=== PATIENT | female | born 1960 | race Caucasian/White ===

== ENCOUNTER 2019-11-06 05:44 | Observation (INO) | payer OTHER ==
[2019-10-29 16:22] LABS: BASOPHILS # (AUTO) 0.1 X10'3 (0-0.2); BASOPHILS % (AUTO) 0.8 % (0-1); EOSINOPHILS # (AUTO) 0.1 X10'3 (0-0.9); EOSINOPHILS % (AUTO) 1.1 % (0-6); LYMPHOCYTES # (AUTO) 2.6 X10'3 (1.1-4.8); LYMPHOCYTES % (AUTO) 30.5 % (21-51); MEAN CORPUSCULAR HEMOGLOBIN 29.6 PG (27.0-31.0); MEAN CORPUSCULAR HGB CONC 32.7 g/dL (33.0-36.5); MEAN CORPUSCULAR VOLUME 90.5 FL (78-98); MEAN PLATELET VOLUME 8.5 FL (7.4-10.4); MONOCYTES % (AUTO) 11.6 % (2-12); NEUTROPHILS # (AUTO) 4.8 X10'3 (1.8-7.7); PRE OP HEMATOCRIT 40.5 % (35.0-45.0); PRE OP HEMOGLOBIN 13.2 g/dL (12.0-16.0); PRE OP PLATELET COUNT 332 X10'3 (140-440); RED BLOOD COUNT 4.47 X10'6 (4.20-5.60); RED CELL DISTRIBUTION WIDTH 14.5 % (11.5-14.5)
[2019-10-29 16:46] LABS: ALBUMIN 3.7 G/DL (3.4-5.0); ALBUMIN/GLOBULIN RATIO 0.9 (1.1-1.5); ALKALINE PHOSPHATASE 92 IU/L (46-116); BLOOD UREA NITROGEN 21 MG/DL (7-18); BUN/CREATININE RATIO 17.8 (6.6-38.0); CALCIUM 9.4 MG/DL (8.5-10.1); CHLORIDE 107 MMOL/L (99-107); CREATININE 1.18 MG/DL (0.40-0.90); PRE OP ALT 43 U/L (30-65); PRE OP ANION GAP 8 (8-16); PRE OP AST 37 U/L (10-37); PRE OP BILIRUB, TOTAL 0.4 MG/DL (0.0-1.0); PRE OP GLUCOSE 96 MG/DL (70-104); PRE OP POTASSIUM 4.4 MMOL/L (3.4-5.1); PRE OP SODIUM 144 MMOL/L (135-145); TOTAL CARBON DIOXIDE 29.4 MMOL/L (24-32); TOTAL PROTEIN 7.9 G/DL (6.4-8.2); eGFR 47 ML/MIN
[2019-11-06] VITALS (43 sets, daily range): BP systolic 92–164; BP diastolic 48–89
[~2019-11-06] VITALS: Ht 165.1 cm; Wt 111.6 kg
[~2019-11-06 05:44] MED LIST: ALBU8HFA PO; ASPI81TA52 PO; CETI-90 PO; ESCI10TA61 PO; HYDR12.55 PO; LOSA25TA96 PO; METF500T PO; MONT10TA26 PO; OXYB15TA19 PO; ROSU10TA2 PO; SYN0.088T PO; acetaminophen 325mg tablet PO ONE; ascorbic acid 500mg tablet PO ONE; ceFAZolin 2gm in dextrose, iso 50 ML IV ONE; celeCOXIB 100mg capsule PO ONE; famotidine 20mg tablet PO ONE; gabapentin 300mg capsule PO ONE; metoclopramide 5 mg/ml inj IV ONE; oxyCODONE SR 10mg (sust. release) tab -2 tabs (20mg) PO ONE; ringers solution, lacted 1,000 ML IV SCH; tranexamic acid 1gm/0.7% sal. 100 ML IV ONE; vancomycin 1,500 MG in NS 300ml IV soln IV ONE
[2019-11-06] MEDS ORDERED: LIDOcaine 1% (10mg/ml) 2ml vial ONE (06:23)
[2019-11-06] MEDS ORDERED: cloNIDine hcl/PF 100mcg/ml inj ONE (07:13)
[2019-11-06] MEDS ORDERED: fentaNYL/PF 50MCG/1 ML 2ML syringe ONE (07:17)
[2019-11-06] MEDS ORDERED: methylPREDNISolone sod succ 125mg/2ml vial ONE (07:18)
[2019-11-06] MEDS ORDERED: BUPIVAcaine/PF 2.5 mg/ml (0.25%) 30ml vial ONE (07:18)
[2019-11-06] MEDS ORDERED: midazolam 2 mg/2 ml injection ONE (07:19)
[2019-11-06] MEDS ORDERED: sevoflurane 250ml liquid IH ONE (07:22)
[2019-11-06] MEDS ORDERED: propofol inj 20 ML IV ONE ×3 (07:42→08:58)
[2019-11-06] MEDS ORDERED: LIDOcaine 2% (20mg/ml) 5ml vial ONE (07:42)
[2019-11-06] MEDS ORDERED: LIDOcaine 1%/PF 5ML 10 MG/ML VIAL ONE (07:42)
[2019-11-06] MEDS ORDERED: ROPIVAcaine 0.5% (5mg/ml) 30ml vial ONE (07:42)
[2019-11-06] MEDS ORDERED: dexamethasone sod phosphate 4mg/ml inj. ONE (07:42)
[2019-11-06] MEDS ORDERED: ondansetron/PF 4mg/2ml inj ONE (08:06)
[2019-11-06] MEDS ORDERED: ringers solution, lacted 1,000 ML IV SCH (08:19)
[2019-11-06] MEDS ORDERED: acetaminophen 1,000mg/100ml IV 100 ML IV PRN (08:20)
[2019-11-06] MEDS ORDERED: morphine 4 MG/ML inj SYRINge IV PRN (08:20)
[2019-11-06] MEDS ORDERED: ondansetron/PF 4mg/2ml inj IV PRN ×2 (08:20→13:00)
[2019-11-06] MEDS ORDERED: meperidine/PF 25mg/ml syringe IV PRN (08:20)
[2019-11-06] MEDS ORDERED: morphine 2 MG/ML inj. syringe IV PRN (08:20)
[2019-11-06] MEDS ORDERED: HYDROmorphone inj. 0.5 MG/0.5 ML DISP.SYRIN IV PRN ×2 (08:20)
[2019-11-06] MEDS ORDERED: proCHLORperazine 10 MG/2 ml inj IV PRN (08:20)
[2019-11-06] MEDS ORDERED: morphine 10mg/ml inj. ONE (08:31)
[2019-11-06] MEDS ORDERED: ePHEDrine 50MG/ML INJ. ONE (08:50)
[2019-11-06] MEDS ORDERED: 0.9 % SODIUM CHLORIDE 10 ML VIAL ONE (08:58)
--- NOTE | 2019-11-06 09:18 | NUR ---
RECEIVED FROM OR ACCOMPANIED BY ANESTHESIOLOGIST DR ROBERTSON. REPORT GIVEN. PT DROWSY BUT AROUSES, DENIES PAIN.20 GAUGE PIV R FA PATENT AND RUNNING LR AT 100 ML/HR. L UE DRESSING CDI WITH BRACE IN PLACE, ELEVATED ON PILLOW. SKIN PINK AND WARM WITH GOOD CAPP REFILL, VSS, UNABLE TO MOVE LUE DT BLOCK. RESTING COMFORTABLY
--- NOTE | 2019-11-06 11:40 | NUR ---
PT COMFORTABLE AND PAIN FREE BUT UNABLE TO STAY AWAKE AND UNABLE TO MAINTAIN SPO2 LEVELS ABOVE 92, WILL DROP INTO HIGH 70 S LOW 80S SATURATION WITHOUT CONSTANT STIMULATION AND ENCOURAGEMENT TO COUGH AND DEEP BREATHE. INITIATED IS EXERCISES.
[2019-11-06] MEDS ORDERED: albuterol 2.5 MG/3 ML nebule NEB ONE ×2 (12:55→13:10)
[2019-11-06] MEDS ORDERED: non-formulary drug (albuterol inhaler (Pro-Air Inhaler) 2 PUFFS) PO PRN (12:55)
[2019-11-06] MEDS ORDERED: bisacodyl 10mg suppository rectal RC PRN (13:00)
[2019-11-06] MEDS ORDERED: diphenhydrAMINE 25mg capsule PO PRN ×2 (13:00)
[2019-11-06] MEDS ORDERED: magnesium hydroxide 30ml (MOM) UD suspension PO PRN (13:00)
[2019-11-06] MEDS ORDERED: acetaminophen 325mg tablet PO PRN (13:00)
[2019-11-06] MEDS ORDERED: HYDROcodone/acetaminophen 10/325mg tab PO PRN (13:05)
[2019-11-06] MEDS ORDERED: albuterol 2.5 MG/3 ML nebule ONE (13:11)
[2019-11-06] MEDS ORDERED: albuterol 2.5 MG/3 ML nebule NEB PRN (13:20)
--- NOTE | 2019-11-06 14:12 | NUR ---
Patient in room . I have received report from Saida and had the opportunity to ask questions and assume patient care.
--- NOTE | 2019-11-06 14:28 | NUR ---
TRANSPORTED VIA GURNEY ACCOMPANIED BY MYSELF. REPORT GIVEN. PT DROWSY BUT AROUSES, DENIES PAIN.20 GAUGE PIV R FA PATENT AND RUNNING LR AT 100 ML/HR. L UE DRESSING CDI WITH BRACE IN PLACE, ELEVATED ON PILLOW. SKIN PINK AND WARM WITH GOOD CAPP REFILL, VSS, UNABLE TO MOVE LUE DT BLOCK. RESTING COMFORTABLY. TRANSFERRED TO ORTHO BED IN DOWN POSITION WITH RAILS UP LEFT IN CARE OF DANNA LUCAS.
--- NOTE | 2019-11-06 14:35 | NUR ---
Pt arrived, tucked in, vitals set up, pt is alert oriented and does not c/o pain at this time
[2019-11-06] MEDS: ceFAZolin 1GM/D5W- ADD-VANTAGE 50 ML IV SCH ×2 (16:00→23:46)
[2019-11-06] MEDS: aspirin 81mg tablet.DR PO SCH (17:28)
[2019-11-06] MEDS: enoxaparin 40mg/0.4ml syringe SQ SCH (17:28)
--- NOTE | 2019-11-06 18:30 | NUR ---
Problems reprioritized. Patient report given, questions answered & plan of care reviewed with May.
--- NOTE | 2019-11-06 18:41 | NUR ---
Patient in room ORTHO 4014. I have received report from Petra LUCAS and had the opportunity to ask questions and assume patient care.
[2019-11-06] MEDS ORDERED: vancomycin/NS 1 GM ADD-VANTAGE 250 ML IV SCH (20:00)
[2019-11-06] MEDS ORDERED: atorvastatin 20mg tablet PO SCH (21:00)
[2019-11-06] MEDS ORDERED: sennosides 8.6mg tablet PO SCH (21:00)
[2019-11-06] MEDS ORDERED: montelukast 10mg tablet PO SCH (21:00)
[2019-11-06] MEDS ORDERED: oxybutynin 5mg tablet PO SCH (21:00)
[2019-11-06] MEDS ORDERED: ESCITALOPRAM OXALATE 5 MG TABLET PO SCH (21:00)
[2019-11-06] MEDS ORDERED: cetirizine 10mg tablet PO SCH (21:00)
[2019-11-06] MEDS: HYDROcodone/acetaminophen 10/325mg tab PO PRN (23:14)
[2019-11-07 02:00] VITALS: BP 144/58
[2019-11-07] MEDS: HYDROcodone/acetaminophen 10/325mg tab PO PRN ×2 (05:17→13:57)
[2019-11-07 06:00] VITALS: BP 133/60
[2019-11-07 06:07] LABS: ANION GAP 9 (8-16); CHLORIDE 105 MMOL/L (99-107); POTASSIUM 4.5 MMOL/L (3.5-5.1); SODIUM 139 MMOL/L (135-145)
[2019-11-07 06:10] LABS: BASOPHILS % (AUTO) 0.1 % (0-1); EOSINOPHILS % (AUTO) 0 % (0-6); LYMPHOCYTES # (AUTO) 1.1 X10'3 (1.1-4.8); LYMPHOCYTES % (AUTO) 11.3 % (21-51); MEAN CORPUSCULAR HEMOGLOBIN 29.7 PG (27.0-31.0); MEAN CORPUSCULAR HGB CONC 32.5 g/dL (33.0-36.5); MEAN CORPUSCULAR VOLUME 91.4 FL (78-98); MEAN PLATELET VOLUME 8.5 FL (7.4-10.4); MONOCYTES # (AUTO) 0.5 X10'3 (0-0.9); MONOCYTES % (AUTO) 4.7 % (2-12); NEUTROPHILS % (AUTO) 83.9 % (42-75); PLATELET COUNT 269 X10'3 (140-440); RED BLOOD COUNT 4.05 X10'6 (4.20-5.60); RED CELL DISTRIBUTION WIDTH 14.8 % (11.5-14.5); WHITE BLOOD COUNT 9.6 X10'3 (4.5-11.0)
--- NOTE | 2019-11-07 06:20 | NUR ---
Patient in room ORTHO 4014. I have received report from [facility] and had the opportunity to ask questions and assume patient care.
--- NOTE | 2019-11-07 06:25 | NUR ---
Problems reprioritized. Patient report given, questions answered & plan of care reviewed with Petra LUCAS.
[2019-11-07] MEDS: aspirin 81mg tablet.DR PO SCH (08:00)
[2019-11-07] MEDS ORDERED: losartan 25mg tablet PO SCH (08:00)
[2019-11-07] MEDS ORDERED: metFORMIN 500mg tablet PO SCH (08:00)
[2019-11-07] MEDS ORDERED: levoTHYROXINE 125mcg tablet PO SCH (08:00)
[2019-11-07] MEDS ORDERED: HYDROchlorothiazide 12.5mg capsule PO SCH (08:00)
[2019-11-07] MEDS: enoxaparin 40mg/0.4ml syringe SQ SCH (08:32)
--- NOTE | 2019-11-07 13:57 | NUR ---
Elevated BG over 123-254 mg/dl. Patient here for observation. If admitted will need A1c to check if over 7 and if needing education. Addendum: 11/07/19 at [address] Amended: Links added.
--- NOTE | 2019-11-07 15:57 | NUR ---
Reviewed discharge instructions with pt. Pt verbalized understanding. Pt was dressed and wheeled downstairs to be driven home by her spouse.
== END 2019-11-07 15:00 | disposition home or self-care (01) ==
LOC: PAS 05:44 → EDSTATUS 07:30 → ORTHO 4S 12:57
PROVIDERS: ADMIT Orthopaedic Surgery; ATTEND Orthopaedic Surgery
DX: Z03.818 Encounter for observation for suspected exposure to other biological agents ruled out (principal); G56.22 Lesion of ulnar nerve, left upper limb; G56.02 Carpal tunnel syndrome, left upper limb
CPT/HCPCS: 25150; 36415; 64719; 80051; 80053; 82948; 85025; 87081; 94640; 96365; 96366; 96367; 96372; 96375; 97161; 97530; A6222; G0378; J0690; J0735; J1100; J2001; J2250; J2270; J2405; J2704; J2765; J2930; J3010; J3370; J3490; J7040; L3999; U0003; A4215; A4618; A6250; A6449; A6455; A7000; J1650; J2795; J7120